=== PATIENT | female | born 1965 | race Caucasian/White ===

== ENCOUNTER → 2017-08-10 | Outpatient (CLI) | payer OTHER | END | disposition home or self-care (01) | LOC: C.PATHSPEC 10:33 | PROVIDERS: ATTEND Dentist Oral and Maxillofacial Pathology | DX: M27.8 Other specified diseases of jaws (principal) ==

== ENCOUNTER 2023-10-19 07:22 | Inpatient (IN) ==
--- NOTE | 2023-09-28 15:14 | PAT Medication Instructions ---
Medication Instructions Date of Service September 28, 2023 Home Medications fluoxetine 20 mg tablet 20 mg PO QAM fremanezumab-vfrm 225 mg/1.5 mL subcutaneous auto-injector (Ajovy) 225 mg subcut Q30D magnesium 500 mg tablet 500 mg PO QAM twwwjjky-nvg-fdkbk ac 400 mcg-calcium carb 500 mg-vit K1 20 mcg tablet (Women's 50 Plus Daily Formula) 1 tab PO QAM riboflavin (vitamin B2) 100 mg tablet (Vitamin B-2) 400 mg PO QAM rizatriptan 10 mg tablet (Maxalt) 10 mg PO UD PRN migraines sumatriptan succinate 6 mg/0.5 mL subcutaneous pen injector 6 mg subcut UD PRN migraines topiramate 100 mg tablet 200 mg PO BID MEDICATION INSTRUCTIONS: DO NOT take the morning of surgery magnesium 500 mg tablet 500 mg PO QAM hbptbxdn-dab-wfbhb ac 400 mcg-calcium carb 500 mg-vit K1 20 mcg tablet (Women's 50 Plus Daily Formula) 1 tab PO QAM riboflavin (vitamin B2) 100 mg tablet (Vitamin B-2) 400 mg PO QAM Take morning of surgery With a small sip of water, OTHERWISE NOTHING TO EAT OR DRINK AFTER MIDNIGHT: fluoxetine 20 mg tablet 20 mg PO QAM rizatriptan 10 mg tablet (Maxalt) 10 mg PO UD PRN migraines sumatriptan succinate 6 mg/0.5 mL subcutaneous pen injector 6 mg subcut UD PRN migraines topiramate 100 mg tablet 200 mg PO BID Take evening before surgery rizatriptan 10 mg tablet (Maxalt) 10 mg PO UD PRN migraines sumatriptan succinate 6 mg/0.5 mL subcutaneous pen injector 6 mg subcut UD PRN migraines topiramate 100 mg tablet 200 mg PO BID Other Notes CHECK WITH PRESCRIBER FOR INSTRUCTIONS: fremanezumab-vfrm 225 mg/1.5 mL subcutaneous auto-injector (Ajovy) 225 mg subcut Q30D If you have any questions please call us at [phone] or [phone] or [phone] or [phone]
--- NOTE | 2023-10-10 10:42 | Anesthesiology Consultation ---
Date of Service October 10, 2023 Assessment & Plan (1) Encounter for pre-operative examination: Chart Review Chart Review: Acceptable Risk for Surgery (pending PCP clearance 10/12/23) and Patient seen in Pre Admission Testing - Awaiting PCP clearance 10/12/23 (S- Dr. Martínez)(please fax preop testing to PCP for review) Per PAT appt on 10/10/23, no recent illness/disease exposures, illness related symptoms, or recent illness/disease positive tests. Will leave to surgeon's discretion if preop Covid testing needed Teaching & Discussion Pre-Anesthesia Teaching/Discussion Notes: Instructed NPO after midnight before surgery,except medications with 15 cc of water. Medication instructions provided according to the PAT guidelines. History Surgery Operation Date: 10/19/23 07:45 Proposed Procedures p L4-L5 Decompression and Fusion with Spinal Cord Monitoring - Yovany Varela, Height/Weight Height: 5 ft 3 in Weight: 52.7 kg Allergies Allergy/AdvReac Type Severity Reaction Status Date / Time meloxicam Allergy Rash Verified 09/28/23 12:47 Medications Home Medications Medication Instructions Recorded Confirmed Last Taken fluoxetine 20 mg tablet 20 mg PO QAM 09/28/23 09/28/23 Unknown fremanezumab-vfrm 225 mg/1.5 mL 225 mg subcut Q30D 09/28/23 09/28/23 Unknown subcutaneous auto-injector (Ajovy) magnesium 500 mg tablet 500 mg PO QAM 09/28/23 09/28/23 Unknown dgxgaban-pai-jhnpj ac 400 1 tab PO QAM 09/28/23 09/28/23 Unknown mcg-calcium carb 500 mg-vit K1 20 mcg tablet (Women's 50 Plus Daily Formula) riboflavin (vitamin B2) 100 mg 400 mg PO QAM 09/28/23 09/28/23 Unknown tablet (Vitamin B-2) rizatriptan 10 mg tablet (Maxalt) 10 mg PO UD PRN migraines 09/28/23 09/28/23 Unknown sumatriptan succinate 6 mg/0.5 mL 6 mg subcut UD PRN migraines 09/28/23 09/28/23 Unknown subcutaneous pen injector topiramate 100 mg tablet 200 mg PO BID 09/28/23 09/28/23 Unknown Past Medical History Medical History Anxiety and depression History of COVID-19 03/2023, not hosp; severe flu symptoms>resolved Hx-TIA (transient ischemic attack) 2003 or 2005, double vision, N/V, vertigo>hospitalized for 2 weeks>no residual effects Migraines F/u Dr. Landa, [facility] Neuro Stable with Ajovy Exercise / Class Metabolic Activity II 4-5 Yardwork/Stairs/Walk up hill (one flight of stairs - no chest pain or SOB ) Past Surgical History Surgical History History of total left knee replacement 2022 Hx of colonoscopy Hx of total hysterectomy ovaries remain Hx of tubal ligation Past Anesthesia History No Hx of Anesthesia Complications and No Family Hx of Anesthesia Complications History of PONV No Hx of PONV and No Hx of Motion Sickness Social History Smoking Status: Never smoker Do You Dip or Chew Tobacco: No Hx Alcohol Use: Yes (many years ago) Hx Substance Use: No substance use type: does not use Review of Systems - Hx of snoriing - no hx of sleep study Patient denies chest pain, shortness of breath, dyspnea on exertion, reflux, cough, wheezing, palpitations. No hx of seizures, NC. No hx of blood clots or blood transfusions Physical Exam Vital Signs VITALS BP 135/80 P 84 TEMP 97.8 SP02 99% RESP 16 Constitutional no acute distress ENMT Mouth: no TMJ clicking Thyromental Distance: < 3.5 Finger Breadths (3.0) Mallampati Class: III Neck neck extension not limited Respiratory normal respiratory effort; no respiratory distress Auscultation: lungs clear to auscultation bilaterally; no wheezes Cardiovascular Rate/Rhythm: regular rate and regular rhythm Heart Sounds: no murmur Vessels: no carotid bruit Musculoskeletal Spine: no pain with cervical ROM Extremities: extremities normal to inspection Psychiatric Orientation: alert Lab Results Anesthesia Preop Results Results Anesthesia Widget: WBC 4.76 K/ul (4.8-10.8) L 10/10/23 Hgb 11.9 g/dl (12.0-16.0) L 10/10/23 Hct 35.8 % (37.0-47.0) L 10/10/23 Plt 302 K/uL (130-400) 10/10/23 Na 139 mmol/L (136-145) 10/10/23 K 3.8 mmol/L (3.5-5.1) 10/10/23 Cl 107 mmol/L (98-107) 10/10/23 CO2 27 mmol/L (21-32) 10/10/23 BUN 16 mg/dl (6-23) 10/10/23 Creat 1.04 mg/dl (0.6-1.2) 10/10/23 Glucose Level 94 mg/dl (70-99(Fasting)) 10/10/23 Urine Color Dark Yellow 10/10/23 Urine Appearance Turbid (Clear) A 10/10/23 Urine pH 7.5 (4.5-7.5) 10/10/23 Urine Specific [place] 1.013 (1.000-1.030) 10/10/23 Urine Protein Negative (Negative) 10/10/23 Urine Glucose (UA) Negative (Negative) 10/10/23 Urine Ketones Negative (Negative) 10/10/23 Urine Blood Negative (Negative) 10/10/23 Urine Nitrite Negative (Negative) 10/10/23 Urine Bilirubin Negative (Negative) 10/10/23 Urine Urobilinogen Negative (Negative) 10/10/23 Urine Leukocyte Esterase Negative (Negative) 10/10/23 Urine WBC (Auto) 0-5 /hpf (0-5) 10/10/23 Urine RBC (Auto) 0-2 /hpf (0-2) 10/10/23 Urine Hyaline Casts (Auto) 0-2 /lpf (0-2) 10/10/23 Urine Epithelial Cells (Auto) 0-2 /hpf (0-2) 10/10/23 Urine Bacteria (Auto) None Seen (None Seen) 10/10/23 Blood Type A Positive 10/10/23 Antibody Screen NEGATIVE 10/10/23 Testing Laboratory Results * Minimal anemia- surgeon's office informed- Dr. Nichole malhotra with proceeding as long as PCP approves patient for surgery; will send preop testing to PCP for review at preop appt 10/12/23 Electrocardiogram Date: 10/10/23 Findings: + NSR @ (76bpm) Incomplete RBBB Chest X-Ray Date: 04/12/23 Findings: + NAD
[2023-10-19] MEDS ORDERED: HYDROmorphone INJ 1 MG/ML SYRINGE IV PRN ×2 (08:11→12:55)
[2023-10-19] MEDS ORDERED: ATROPINE SULFATE 0.1 MG/ML 10ML SYR IV PRN (08:11)
[2023-10-19] MEDS ORDERED: PROMETHAZINE HCL 6.25 MG in SODIUM CHLORIDE 0.9% 50 ML IV PRN (08:11)
[2023-10-19] MEDS ORDERED: ONDANSETRON INJ 2 MG/ML 2 ML VIAL IV PRN ×2 (08:11→12:55)
[2023-10-19] MEDS: LR 60ML/HR IV SCH (08:15)
[2023-10-19] MEDS: ACETAMINOPHEN 500 MG TAB PO SCH (08:15)
[2023-10-19] MEDS: LR 15ML/HR IV SCH (08:15)
[2023-10-19] MEDS: GABAPENTIN 600 MG DOSE PO SCH (08:16)
[2023-10-19] MEDS: CeleBREX 200 MG CAP PO SCH (08:16)
--- NOTE | 2023-10-19 08:46 | History & Physical Bridge Note ---
Date of Service October 19, 2023 History & Physical Bridge Note I have examined the patient, reviewed the History & Physical and in the interval since the performance of the History & Physical I have noted the following changes of clinical significance: no changes noted
--- NOTE | 2023-10-19 08:47 | History & Physical Report ---
Date of Service October 19, 2023 Assessment & Plan (1) Neurogenic claudication due to lumbar spinal stenosis: Plan: L4-L5 decompression and fusion History of Present Illness Chief Complaint: Back and leg pain Primary Care Provider: NO PCP This is a 58-year-old female who presents with chronic persistent back and leg pain after the stents were open after Allergies Allergy/AdvReac Type Severity Reaction Status Date / Time meloxicam Allergy Rash Verified 10/19/23 07:52 Home Medications Medication Instructions Recorded Confirmed Type fluoxetine 20 mg tablet 20 mg PO QAM 09/28/23 10/19/23 History fremanezumab-vfrm 225 mg/1.5 mL 225 mg subcut Q30D 09/28/23 10/19/23 History subcutaneous auto-injector (Ajovy) magnesium 500 mg tablet 500 mg PO QAM 09/28/23 10/19/23 History rhodquxp-skn-rosfn ac 400 1 tab PO QAM 09/28/23 10/19/23 History mcg-calcium carb 500 mg-vit K1 20 mcg tablet (Women's 50 Plus Daily Formula) riboflavin (vitamin B2) 100 mg 400 mg PO QAM 09/28/23 10/19/23 History tablet (Vitamin B-2) rizatriptan 10 mg tablet (Maxalt) 10 mg PO UD PRN migraines 09/28/23 10/19/23 History sumatriptan succinate 6 mg/0.5 mL 6 mg subcut UD PRN migraines 09/28/23 10/19/23 History subcutaneous pen injector topiramate 100 mg tablet 200 mg PO BID 09/28/23 10/19/23 History Past Med/Surg History Problem List (Updated 10/19/23 @ 08:47 by Yovany Varela DO) Neurogenic claudication due to lumbar spinal stenosis Encounter for pre-operative examination Medical History Anxiety and depression History of COVID-19 03/2023, not hosp; severe flu symptoms>resolved Hx-TIA (transient ischemic attack) 2003 or 2005, double vision, N/V, vertigo>hospitalized for 2 weeks>no residual effects Migraines F/u Dr. Landa, [facility] Stable with Ajovy Surgical History History of total left knee replacement 2022 Hx of colonoscopy Hx of total hysterectomy ovaries remain Hx of tubal ligation Social History Smoking Status: Never smoker Second Hand Exposure: Yes (hx as child); Do You Dip or Chew Tobacco: No; Tobacco Cessation Education Requested by Patient: No Hx Alcohol Use: Yes (many years ago) Hx Substance Use: No Preferred Language: Azeri Communication Ability: Effective Pc Installation Engineer Required: No Beliefs That Will Affect Care: None Current Living Situation: Spouse Other Information That Helps Us Care for You: No Feels Safe at Home: Yes Safety Concerns: Feels Safe At This Time Assistive Devices: None Physical Exam Physical Exam: Patient is alert and oriented heart regular rhythm lungs clear Results & Data Results & Data Vital Signs (Past 12 Hours) Vital Signs Temp Pulse Resp BP Pulse Ox O2 Del Method 10/19/23 07:54 36.6 C 64 20 129/77 100 Room Air
[2023-10-19] MEDS ORDERED: PROPOFOL IV EMULSION 10 MG/ML 20 ML VIAL IV ONE ×2 (09:07→09:42)
[2023-10-19] MEDS ORDERED: fentaNYL citrate PF 100 MCG/2 ML VIAL ONE (09:07)
[2023-10-19] MEDS ORDERED: LIDOCAINE 2% 2 ML VIAL/AMP(20MG/ML) INFIL ONE (09:07)
[2023-10-19] MEDS ORDERED: MIDAZOLAM HCL 1 MG/ML 2ML VIAL ONE (09:07)
[2023-10-19] MEDS ORDERED: DEXAMETHASONE SOD INJ 4 MG/ML VIAL ONE (09:07)
[2023-10-19] MEDS ORDERED: ONDANSETRON INJ 2 MG/ML 2 ML VIAL ONE (09:07)
[2023-10-19] MEDS ORDERED: ROCURONIUM BROMIDE 10 MG/ML 5 ML VIAL IV ONE ×2 (09:07→09:42)
[2023-10-19] MEDS: ceFAZolin 2000MG 2,000 MG/15 ML SYR IV SCH (09:14)
[2023-10-19] MEDS: BUPIVACAINE/EPINEPHRINE 0.25% 1:200,000 30 ML VIAL ONE (09:36)
[2023-10-19] MEDS: ceFAZolin 330 MG/ML 1 GM VIAL ONE (09:36)
[2023-10-19] MEDS ORDERED: diphenhydrAMINE 50 MG/ML VIAL ONE (09:39)
[2023-10-19] MEDS: FLOSEAL HEMOSTATIC MATRIX 10ML TOP ONE (10:29)
[2023-10-19] MEDS ORDERED: GLYCOPYRROLATE 0.2 MG/ML VIAL ONE (10:33)
[2023-10-19] MEDS ORDERED: NEOSTIGMINE METHYLSULFATE 1 MG/ML 10ML VIAL ONE (10:33)
--- NOTE | 2023-10-19 10:38 | Operative Report ---
Post Operative Report Pre & Post Diagnosis Operation Date: 10/19/23 09:05 Pre-Op Diagnosis: 1. Neurogenic claudication due to lumbar spinal stenosis Spondylolisthesis L4-L5 Post-Op Diagnosis: Same I identified the patient and participated in the time-out.: Yes Procedure Operation Date: 10/19/23 09:05 Actual Procedures #1 lumbar decompression bilateral medial facetectomies and foraminotomies L3-L4 L4-5 per #2 posterior spinal fusion L4-5 per #3 placed posterior instrumentation L4-5 per #4 interbody fusion L4-L5 #5 placement spiral 12 x 26 mm x 2 at L4-5. #6 placement locally harvested morselized autograft in the posterior gutters. #7 placement infuse collagen sponge, with Koros in the posterior gutters and Morpheus bone graft interbody space. Surgeon Yovany Varela, Aircraft Engine Mechanic Over[employer] Solitario Martinez Estimated Blood Loss 100 Findings Consistent with Post-Op Diagnosis Specimens None Indications This is a 58-year-old female who presents above-mentioned diagnosis with a failed course of nonoperative care is here for surgical invention. Description of Procedure Patient was met with identified informed consent obtained. Patient was then taken to the operative suite underwent patient placed in a prone position on the Harjit table on top the Corbin frame. All bony prominences well-padded eyes inspected to ensure no external precipice spinal. This point lumbar spine was prepped and draped in normal sterile fashion. Sharp dissection with the assistance of Bovie cautery from down to exposing the lamina transverse processes of L4-L5. From caudal assessment fashion complete laminectomy of L4 was performed including bilateral medial facetectomies and foraminotomies addressing severe spinal stenosis. Then performed a partial laminectomy of L3 including bilateral medial facetectomies addressing all lateral recess disease. Pedicle screws were then placed in L4-L5 bilaterally with assistance of fluoroscopy and appropriate size heriberto placed. By way of transforaminal approach on the right and discectomy of L4-5 was performed endplates guided to subcortical bleeding bone and a 12 x 26 mm Spira cage filled with Morpheus bone graft tapped in position. Then proceeded to the left transforaminal region at L4-5. Discectomy for performed endplates guided to subcortical bleeding bone and a second 12 x 26 mm spira cage filled with Morpheus bone graft tapped into position. The rods were then compressed locked into final position bilaterally. The transverse processes of L4-5 burred to subcortical bleeding bone. Infuse collagen sponge but with Koros and local autograft placed in the posterior gutters. 15 round SATHISH drain inserted. The incision was then closed with 1 Vicryl in the fascia 2-0 Vicryl subcutaneously and 4 Monocryl for final skin closure. Steri-Strips sterile dressing placed. Patient waken taken PACU stable condition. Please note spinal cord monitoring was utilized at the procedure no changes noted. Lastly Solitario Martinez was present at the entire surgeon while the patient positioning complex portion of the surgery and final skin closure. I attest to the content of the Intraoperative Record and any orders documented therein. Any exceptions are noted below.
[2023-10-19] MEDS ORDERED: SUGAMMADEX SODIUM 200 MG/2 ML VIAL IV ONE (10:56)
--- NOTE | 2023-10-19 11:00 | Fluoroscopy Report ---
INTRAOPERATIVE RADIOGRAPHS CLINICAL HISTORY: L4-L5 spinal fusion. Fluoro time: 13 seconds. Ka,r: 6.20 mGy FINDINGS: 2 spot fluoroscopic views of the lumbar spine are presented. There has been discectomy at L 4-L5 with laminectomy and posterior fusion at this level. Interpedicular screws are in place. The ort hopedic hardware appears intact. IMPRESSION: Intraoperative images from lumbar spinal fusion surgery as above. Electronically signed by: Gaston Drummond M.D. 10/19/2023 10:59 AM
--- OUTSIDE RECORDS SUMMARY | 2023-10-19 11:40 | External Medical Summary | Summary of Care ---
Author Name Unknown Organization [facility] Address [address] [facility] [place] [address] Phone [phone] Care Team Providers Care Supervisor Fur Floor Worker Name Role Phone Mauricio Hernandez DO, David Vincent Primary Care Provid er Reason for Visit * Reason Comments pre-op exam Encounter Details Date Type Department Care Team (Late st Contact Info) Description 10/12/2023 4:40 PM EDT Office Visit [facility] [address] [place] [phone] Abdi Arnett CRNP [address] [place] [address] Preop examination* Allergies Active Allergy Reactions Criticality Noted Date Comments Meloxicam Rash Low 04/16/2018 documented as of this encounter (statuses as of 10/12/2023) Medications Medication Sig Dispensed Refills Start Date End Date Status MULTIVITAMINS PO CAPS one cap daily 0 0 08/20/2009 Active CLARITIN-D 12 HOUR 5-120 MG PO TB12 as needed Active Magnesium 500 MG Capsule Take 1 Tablet by mouth in the morning. Active Osteo Bi-Flex Adv Joint Shield Oral Tablet Take 1 Tab by mouth daily. Active Vitamin B-2 100 MG Oral Tablet (vitamin B-2) TAKE 4 TABLETS IN THE MORNING WITH FOOD 12/13/2020 Active Ondansetron 8 MG Oral Tablet Disintegrating (Zofran)Indications:I ntractable migraine with aura without status migrainosus Place on tongue 1 Tablet every 8 hours as needed for Nausea. dissolve on tongue. 30 Tablet 5 11/21/2021 Active SUMAtriptan Succinate 6 MG/0.5ML Subcutaneous Solution Auto-injector (Imitrex) Inject 6 mg under the skin as needed for Migraine. Do not use within 24 hours of Rizatriptan. 0.5 mL 5 08/24/2022 Active valACYclovir HCl 1 GM Oral Tablet (Valtrex) 2 tablets by mouth every 12 hours for 1 day at onset of cold sores. 20 Tablet 11 01/24/2023 Active Topiramate 100 MG Oral Tablet (topAMAX) TAKE 2 TABLETS BY MOUTH EVERY MORNING AND TAKE 2 TABLETS BY MOUTH AT BEDTIME 360 Tablet 3 02/21/2023 Active Ajovy 225 MG/1.5ML Subcutaneous Solution Auto-injector (Fremanezumab-vfrm) INJECT 1.5 ML (1 PEN) UNDER THE SKIN EVERY MONTH. 1.5 mL 3 06/21/2023 Active FLUoxetine HCl 20 MG Oral Capsule (PROzac) TAKE ONE CAPSULE BY MOUTH EVERY DAY 90 Capsule 3 08/27/2023 08/26/2024 Active Rizatriptan Benzoate 10 MG Oral Tablet (Maxalt) Take 1 tablet as needed for migraine. May repeat after 2 hours. Do not exceed 2 tablets in 24 Hours. 10 Tablet 1 09/20/2023 Active Vitamin D-3 5000 UNIT/ML Sublingual Liquid Place under the tongue. Active documented as of this encounter (statuses as of 10/12/2023) Active Problems Problem Noted Date Diagnosed Date S/P total knee arthroplasty, left 10/26/2022 Stage 3a chronic kidney disease 10/06/2022 Anxiety and depression 05/19/2022 Disc disorder of lumbar region 08/17/2020 Lumbar radicular pain 08/17/2020 Degeneration of thoracic intervertebral disc Acute midline thoracic back pain 07/05/2020 Vulvar lesion 10/24/2013 History of vulvar dysplasia 10/22/2013 History of cervical cancer 10/22/2013 Migraine 05/26/2011 INFORMATION 02/03/2003 Dysplasia of cervix (uteri) 11/25/2002 Overview: ICD-10 update of inactive term Postcoital bleeding 11/25/2002 Excessive menstruation 11/25/2002 Ulceration of vulva 11/25/2002 documented as of this encounter (statuses as of 10/12/2023) Resolved Problems Problem Noted Date Diagnosed Date Resolved Date TIA (transient ischemic attack) 11/25/2002 04/16/2018 documented as of this encounter (statuses as of 10/12/2023) Immunizations Name Administration Dates Next Due COVID-19 mRNA, LNP-s, No Pre serve, 2-Dose Series (Lockr) 02/23/2021,05/06/2020,04/17/2020 COVID-19, LNP-s, No Preserve , Kamran-sucrose, Ages 12+ (Pfizer) 09/22/2021 Covid-19, Mrna, Lnp-s, Pf, B ivalent, 30 Mcg, IM, 12 yrs and above (Pfizer) 01/25/2022 Seasonal Influenza Virus Vac cine, Unspecified Formulation 01/21/2020,03/07/2019,02/05/2018 Seasonal Influenza, PF, 6 M & above, IM , (FluLaval or Fluzone) 02/23/2023,02/13/2022 Seasonal Influenza, Quadriva lent, No Preserve, IM 01/27/2021,03/05/2019 Seasonal Influenza, Split, I IV3, With Preserve, Inj 05/13/2012,05/26/2011,03/14/2010 TDAP (age 10 and older)(Boostrix) 01/21/2022, Zoster Vaccine Recombinant (Shingrix) 07/20/2021 ,05/04/2021 documented as of this encounter Social History Tobacco Use Types Packs/Day Years Used Date Smoking Tobacco: Never Smokeless Tobacco: Never Tobacco Cessation:Counseling Given: Not Answered Alcohol Use Standard Drinks/Week Comments Not Currently 0 (1 standard drink = 0.6 oz pur e alcohol) occasional PHQ-2 Answer Date Recorded PHQ Adult Total Score 0 10/06/2022 Hunger Vital Sign Answer Date Recorded Within the past 12 months, y ou worried that your food would run out before you got the money to buy more. Never true 10/07/19 23 Within the past 12 months, t he food you bought just didn't last and you didn't have money to get more. Never true 10/06/2022 Sex and Gender Information Value Date Recorded Sex Assigned at Female 04/18/2019 8:03 AM EST Gender Identity Female 04/18/2019 8:03 AM EST Sexual Orientation Straight 04/18/2019 8: 03 AM EST Job Start Date Occupation Industry Not on file Not on file Not on file documented as of this encounter Last Filed Vital Signs Vital Sign Reading Time Taken Comments Blood Pressure 130/80 10/12/2023 4:42 PM EDT Pulse 76 10/12/2023 4:42 PM EDT Temperature 36.6 C (97.9 F) 10/12/2023 4:42 PM ED T Respiratory Rate 16 10/12/2023 4:42 PM EDT Oxygen Saturation 98% 10/12/2023 4:42 PM EDT Inhaled Oxygen Concentration - - Weight 52.3 kg (115 lb 4.8 oz) 10/12/2023 4:42 P M EDT Height 160 cm (5' 2.99") 10/12/2023 4:42 PM EDT Body Mass Index 20.43 10/12/2023 4:42 PM EDT documented in this encounter Functional Status Functional Status Response Date of Assess ment Are you deaf or do you have serious difficulty h earing? No 10/26/2022 Are you blind or do you have serious difficulty seeing, even when wearing glasses? No 10/26/2022 Do you have serious difficul ty walking or climbing stairs? (5 years old or older) No 10/26/2022 Do you have difficulty dress ing or bathing? (5 years old or older) No 10/26/2022 Because of a physical, menta l, or emotional condition, do you have difficulty doing errands alone such as visiting a doctor s office or shopping? (15 years old or older) No 10/27/19 Cognitive Status Response Date of Assessm ent Because of a physical, menta l, or emotional condition, do you have serious difficulty concentrating, remembering, or making decisions? (5 years old or older) No 10/26/2022 documented as of this encounter Progress Notes * Abdi Arnett CRNP - 10/12/2023 4:44 PM EDT Images from the original note were not included. Pre-Operative Medical Evaluation Patient is a 58-year-old female with a history of migraines, degenerative disc disease, anxiety anddepression, and status post total knee arthroplasty who presents today for a preoperative exam. Patient has no specific medical complaints. Taking all medications as prescribed. Procedure Information Type of Surgery: L4-L5 decompression and fusion Referring Physician / Surgeon: Dr. Varela Date of procedure: 10/19/2023 Brief History of Present Illness: Worsening of DDD of lumbar region. Review of Systems: Constitutional ROS: No change in weight, No weakness, No fatigue, and No fevers, sweats, or chills Eye ROS: No recent significant change in vision, No eye pain, redness, discharge, and No diplopia Ear ROS: No ear pain, No drainage, No tinnitus or vertigo, and No recent change in hearing Mouth/Throat ROS: No bleeding gums, No thrush, or No sore throat Neck ROS: No lumps or masses, No swollen glands, and No recent swelling in thyroid area Pulmonary ROS: No cough, sputum, or hemoptysis, No wheezing, No rales, No shortness of breath, and No recent change in breathing Cardiovascular ROS: No chest pain, No shortness of breath, No dyspnea on exertion, No orthopnea, Noparoxysmal nocturnal dyspnea, No edema, No palpitations, and No syncope Gastrointestinal ROS: No abdominal pain, No change in bowel habits, No significant heartburn, No significant change in appetite, No nausea, vomiting, diarrhea, or constipation, No hematemesis, No blood in stools or black tarry stools, No abdominal bloating or early satiety, and No dysphagia Genito-Urinary Female ROS: No dysuria, No frequency, No incontinence, and No urgency Musculoskeletal/Extremities ROS: No pain, redness or swelling on the joints Hematologic/Lymphatic ROS: No anemia, No abnormal bleeding, No chills, No bruising, No night sweats, No swollen nodes, and No weight loss Skin/Integumentary ROS: No edema, No rash, and No itching Neurologic ROS: Normal balance, No headaches, No seizures, and No weakness Medical History Problem List: S/P total knee arthroplasty, left (10/26/2022) Stage 3a chronic kidney disease (HCC) (10/06/2022) Anxiety and depression (05/19/2022) Disc disorder of lumbar region (08/17/2020) Lumbar radicular pain (08/17/2020) Degeneration of thoracic intervertebral disc (07/28/2020) Acute midline thoracic back pain (07/05/2020) Vulvar lesion (10/24/2013) History of vulvar dysplasia (10/22/2013) History of cervical cancer (10/22/2013) Migraine (05/26/2011) INFORMATION (02/03/2003) Dysplasia of cervix (uteri) (11/25/2002) TIA (transient ischemic attack) (11/25/2002) Postcoital bleeding (11/25/2002) Excessive menstruation (11/25/2002) Ulceration of vulva (11/25/2002) Current Medications Vitamin D-3 5000 UNIT/ML Sublingual Liquid, Place under the tongue. Rizatriptan Benzoate 10 MG Oral Tablet (Maxalt), Take 1 tablet as needed for migraine. May repeat after 2 hours. Do not exceed 2 tablets in 24 Hours. FLUoxetine HCl 20 MG Oral Capsule (PROzac), TAKE ONE CAPSULE BY MOUTH EVERY DAY Ajovy 225 MG/1.5ML Subcutaneous Solution Auto-injector (Fremanezumab-vfrm), 225 mg, Subcutaneous, QMonth Topiramate 100 MG Oral Tablet (topAMAX), TAKE 2 TABLETS BY MOUTH EVERY MORNING AND TAKE 2 TABLETS BY MOUTH AT BEDTIME valACYclovir HCl 1 GM Oral Tablet (Valtrex), 2 tablets by mouth every 12 hours for 1 day at onset of cold sores. SUMAtriptan Succinate 6 MG/0.5ML Subcutaneous Solution Auto-injector (Imitrex), 6 mg, Subcutaneous,PRN Ondansetron 8 MG Oral Tablet Disintegrating (Zofran), 8 mg, On Tongue, Q8H PRN Vitamin B-2 100 MG Oral Tablet (vitamin B-2), TAKE 4 TABLETS IN THE MORNING WITH FOOD Osteo Bi-Flex Adv Joint Shield Oral Tablet, 1 Tablet, Oral, Daily(AM) Magnesium 500 MG Capsule, 500 mg, Oral, Daily(AM) CLARITIN-D 12 HOUR 5-120 MG PO TB12, as needed MULTIVITAMINS PO CAPS, one cap daily Allergies: Meloxicam Past Medical History: has a past medical history of Anxiety and depression, DDD (degenerative disc disease), lumbar, Dysplasia of cervix (uteri) (2000), INFORMATION (2002), Migraines, OA (osteoarthritis), Postcoital bleeding, TIA (transient ischemic attack) (1992), and TIA (transient ischemic attack) (11/25/2002). Past Surgical History: has a past surgical history that includes Conization of cervix (2000); ligate/cut oviduct(s) (1989); genital surgery procedure nec (2002); vaginal hysterectomy (2002); genital surgery procedure nec (2003); Colonoscopy, Diagnostic (Rectum) (03/15/2015); Colonoscopy, Diagnostic (Rectum) (N/A, 05/23/2018); Lumbar / Sacral Epidural, single level (09/02/2020); EGD, Flexible, Diagnostic (01/17/2021); EGD, Flexible, Diagnostic (N/A, 03/14/2021); Inject Dx/Ther Substance Interlaminar Lumbar/Sacral W Image Guide (N/A, 08/19/2021); puncture drainage breast cyst (Right); Arthroplasty Knee Condyle/Plateau, Medial or Lateral (Left, 10/26/2022); Arthroplasty Knee Total (Left, 10/26/2022); and Inject Dx/TherSubstance Interlaminar Lumbar/Sacral W Image Guide (08/13/2023). Social History: reports that she has never smoked. She has never used smokeless tobacco. She reports that she does not currently use alcohol. She reports that she does not use drugs. Family History: family history includes Cancer in her father; Glaucoma in her mother; Hypertension in her mother; Lung Disorder in her father. Anesthesia History Type of Anesthesia: General Endotracheal and Caudal block Anesthesia reaction: No History of surgical complications: none Personal history of venous thromboembolic disease: none Physical Exam Vitals: 10/12/23 1642 Temp: 36.6 C (97.9 F) Pulse: 76 Resp: 16 SpO2: 98% BP: 130/80 BMI: 20.43 General: alert, healthy, and no distress Head: Normocephalic, No masses, lesions, tenderness or abnormalities Eye Exam: PERRLA, extraocular movements intact, conjunctiva are pink and non- injected, sclera clear Ears: External ears normal, Canals clear, TM's Normal Nose: no mucosal erythema, no mucosal edema, no purulent discharge Oropharynx: no exudate, no erythema, lips, buccal mucosa, and tongue normal, and mucous membranes are moist Lymph: no palpable lymphadenopathy Heart: regular rate & rhythm, no murmur, and no gallops Lungs: chest symmetric with normal AP diameter, no chest deformities noted, no chest wall tenderness, lungs clear to auscultation Pulses: radial=2/4 Abdomen: abdomen soft, non-tender, normal bowel sounds, Extremities: less than 2 second capillary refill, no joint deformities, effusion, or inflammation Neuro Exam: alert & oriented x 3 with fluent speech, no focal motor/sensory deficits, gait normal, reflexes normal and symmetric Skin: skin color, texture, turgor are normal, no rashes or significant lesions Labs reviewed and are significant for: Latest Reference Range & Units 08/15/23 08:36 08/15/23 08:39 Sodium 135 - 146 mmol/L 140 Potassium 3.5 - 5.1 mmol/L 4.4 Chloride 98 - 107 mmol/L 105 CO2 22 - 32 mmol/L 22 BUN 6 - 20 mg/dL 19 Creatinine 0.5 - 1.0 mg/dL 1.0 Estimated Glomerular Filtration Rate >=60 mL/min 64 Anion Gap 7 - 15 mmol/L 13 Glucose 70 - 120 mg/dL 94 Calcium 8.4 - 10.2 mg/dL 9.8 Magnesium 1.5 - 2.6 mg/dL 2.3 Phosphorus 2.5 - 4.8 mg/dL 4.2 TSH 0.27 - 4.20 uIU/mL 1.78 TSH WITH FREE T4 IF INDICATED Rpt Thyroglobulin Antibody <115.0 IU/mL 13.8 Thyroid Peroxidase Antibody <34.0 IU/mL 8.0 CBC Rpt WBC 4.00 - 10.80 K/uL 6.07 RBC 3.85 - 5.15 M/uL 4.14 HGB 12.0 - 15.3 g/dL 12.9 HCT 36.0 - 45.2 % 40.2 MCV 81.5 - 97.5 fL 97.1 MCH 27.0 - 34.0 pg 31.2 MCHC 32.0 - 36.0 g/dL 32.1 RDW 11.5 - 15.5 % 13.5 PLT 140 - 400 K/uL 324 MPV 6.6 - 11.1 fL 9.2 IRON SCREEN, INCLUDING TIBC Rpt Iron 33 - 151 ug/dL 143 Iron Binding Capacity 250 - 425 ug/dL 346 Transferrin Saturation Percent 15 - 55 % 41 Vitamin B12 232 - 1,245 pg/mL 885 Albumin / Creatinine Ratio, Urine <30 mg/g Creat 6 Albumin, Random Urine mg/dL 1.23 Creatinine, Random Urine mg/dL 194 Rpt: View report in Results Review for more information EKG by my review is significant for: 10/02/2022 3:33 PM - Interface, Emergency Medical Service Manager Narrative & Impression REASON FOR STUDY: PRE-OP CONCLUSIONS: Normal sinus rhythm Incomplete right bundle branch block Borderline ECG When compared with ECG of 09-MAR-2021 16:41, T wave inversion less evident in Anterior leads Ventricular Rate: 92 Atrial Rate: 92 AR Interval: 120 QRS Duration: 92 QT/QTc: 388/479 ms P-R-T Guthrie: 68 : -28 : 61 degrees Emergency Medical Service Manager Type ID Date and Time Dictating Provider EKG Report [id number] 10/02/2022 7:53 AM Sarina Foster MD Signed by Sarina Foster MD on 10/02/22 at 1533 REASON FOR STUDY: PRE-OP CONCLUSIONS: Normal sinus rhythm Incomplete right bundle branch block Borderline ECG When compared with ECG of 09-MAR-2021 16:41, T wave inversion less evident in Anterior leads Ventricular Rate: 92 Atrial Rate: 92 AR Interval: 120 QRS Duration: 92 QT/QTc: 388/479 ms P-R-T Guthrie: 68 : -28 : 61 degrees Display only: Emergency Medical Service Manager ([id number]) on 10/02/2022 7:53 AM by Sarina Foster MD Surgical Risk Scoring Revised Cardiac Risk Index (RCRI) High-risk type of surgery (examples include vascular and any open intraperitoneal or intrathoracic procedures): 0=No History of ischemic heart disease (history of myocardial infarction or positive exercise test, current compliant of chest pain considered to be secondary to myocardia ischemia, use of nitrate therapy, or ECG with pathological Q waves; do not count prior coronary revascularization procedure unless one of the other criteria for ischemic heart disease is present): 0=No History of heart failure: 0=No History of cerebrovascular disease: TIA 25 years ago Diabetes mellitus requiring treatment with insulin: 0=No Preoperative serum creatinine >2.0 mg/dL (177 micromol/L): 0=No Pt has revised cardiac index score of: No Risk Factors- 0.4% (95% CI: 0.1-0.8) Assessment and Plan Preop examination (Primary) - Based on the patient's HPI and physical examination I feel that the patient is clinically optimized for the given surgical procedure. Functional Assessment They are able to walk up a flight of stairs, walk two blocks at a moderate pace, do heavy house work like vacuuming, and grocery shop. The patient's functional status is good (greater than 4 METS). 1 MET: 4 METs: 4-10 METs: Can take care of self, such as eat, dress or use the toilet. Can walk to block or go up a flight of steps. Can do heavy house work. Surgical Risk Assessment Patient is low medical risk for the listed procedure. Medication adjustments: none Additional consults or testing: None I spent a total of 20-29 minutes (exact time 20 mins) on the date of service in preparation, delivery, and documentation of the care provided to Leticia Garcia excluding any time spent in the performance of separately billed services. MATT Mccain [facility] documented in this encounter Nursing Notes * Shirin Baltazar CCMA - 10/12/2023 4:40 PM EDT Chief Complaint Patient presents with pre-op exam Pt is here for a pre op exam. Pt is scheduled for surgery on 10/19/23 for her back. Most recent EKG is 6/5. Pt has no concerns. documented in this encounter Plan of Treatment Upcoming Encounters Date Type Department Care Team (Latest Contact Info) Description 03/17/2024 10:00 AM [facility] Hospital Encounter [facility], Endoscopy [address] [place] [id number] Celsa Santos DO [address] [place] [address] 03/17/2024 10:00 AM EST - 03/17/2024 10:30 AM EST Surgery ENDO [facility], Endoscopy [address] [place] [id number] Celsa Santos, [address] [place] [id number] COLONOSCOPY FLEXIBLE PROXIMAL DIAGNOSTIC 08/25/2024 8:40 AM EDT Office Visit Neurology [facility] [address] [facility] [place] [address] Chelly Hall MD [address] [facility] [place] [address] Scheduled Procedures Name Priority Associated Diagnoses Date/Ti me COLONOSCOPY FLEXIBLE PROXIMAL DIAGNOSTIC Recall History of colonic polyps 03/17/2024 10:00 AM EST Health Maintenance Due Date Last Done Comments HIV Screening 1978 Cologuard 2008 Sigmoidoscopy 2008 Fecal Occult Blood Test 10/22/2014 10/22/2013 COVID-19 Vaccine ( season) 2022 01/25/2022, 09/22/2021, 02/23/2021, Additional history exists Colonoscopy 05/23/2023 05/23/2018, 05/01, 03/15/2015, Additional history exists Colorectal Cancer Screening 05/23/2023 Depression Monitoring 10/07/2023 10/06/2022 GFR 02/14/2024 08/15/2023, 11/28, 10/27/2022, Additional history exists Albumin/Creatinine Ratio 08/14/2024 08/15/2023 CKD HGB USE SMARTSET 37591 08/14/202408/14, 10/27/2022, 10/02/2022, Additional history exists CKD PHOS USE SMARTSET 37145 08/14/2024 08/15/2023 Mammogram 09/04/2024 09/05/2023, 08/0 12/2021, 08/25/2020, Additional history exists Lipid Panel 08/18/2026 08/18/2021, 09/29, 04/18/2018, Additional history exists DTaP,Tdap,and Td Vaccines (3 - Td or Tdap) 01/22/2032 01/21/2022, 08/16/2012 RETIRED - COLONOSCOPY-EVERY 5 YRS AGES 18-100 Discontinued 05/23/2018, 05/23/2018, 03/15/2015, Additional history exists Zoster Vaccines Completed 07/20/2021, 05/04/2021 Influenza Vaccine (FLU shot) Completed 02/23/2023, 02/13/2022, 01/27/2021, Additional history exists GARDASIL-HPV IMMUNIZATION SERIES Aged Out No longer eligible based on patient's age to complete this topic Hepatitis B Aged Out No longer eligi ble based on patient's age to complete this topic MENINGOCOCCAL (MENACTRA/MENVEO) Aged Out No longer eligible based on patient's age to complete this topic Pneumococcal Vaccine: Pediatrics (0 to 5 Years) and At-Risk Patients (6 to 64 Years) Aged Out No longer eligible based on patient's age to complete this topic documented as of this encounter Medical Devices Implanted Type Area Service Order Dispatcher Device Identifier Shelf Expiration Date Model / Serial / Lot Cement Bone Simplex Hv & G - [id number] Implanted:Qty: 2 on 10/26/2022 by Lawson Pedraza MD at OR [facility] Left: Knee DIANA : [employer] 12/29/2023 [id number] / / [id number] Knee Baseplate Tri Tib Sz 2 - [id number] Implanted:Qty: 1 on 10/26/2022 by Lawson Pedraza MD at OR [facility] Left: Knee DIANA : OR[employer] 07/13/2027 [id number] / / [id number] Component Femoral Size 3 - [id number] Implanted:Qty: 1 on 10/26/2022 by Lawson Pedraza MD at OR [facility] Left: Knee DIANA : ORTH[employer] 06/15/2027 [id number] / / [id number] Triathlon X3 Tibial Bearing Insert - [id number] Implanted:Qty: 1 on 10/26/2022 by Lawson Pedraza MD at OR [facility] Left: Knee DIANA : ORTHOP[employer] 06/24/2027 [id number] / / [id number] documented as of this encounter Visit Diagnoses Diagnosis Preop examination- Primary Preoperative examination, unspecified History of colonic polyps Personal history of colonic polyps documented in this encounter Advance Directives * Full Code (Latest Code Status on File) Date Activated Date Inactivated Comments 10/26/2022 2:06 PM 10/27/2022 6:00 PM This order r eflects the patients wishes and were consensually agreed upon. Question Answer Comments Discussion of Advance Direct trinity occurred with: Not Discussed due to patient's condition Care Teams Supervisor Fur Floor Worker Relationship Specialty Start Date End Date Diego Martínez Jr., DO [address] [facility] [place] [address] PCP - General Family Medicine 05/01/17 documented as of this encounter
[2023-10-19] MEDS ORDERED: MAGNESIUM HYDROXIDE SUSP 30 ML UDC PO PRN (12:55)
[2023-10-19] MEDS ORDERED: FAMOTIDINE 20 MG TAB PO PRN (12:55)
[2023-10-19] MEDS ORDERED: LORazepam 0.5 MG in SYRINGE 0.25 ML IV PRN (12:55)
[2023-10-19] MEDS ORDERED: ALUMINUM/MAGNESIUM SUSP 30 ML UDC PO PRN (12:55)
[2023-10-19] MEDS ORDERED: SOD PHOSPHATE/SOD BIPHOSPHATE ENEMA 132 ML BTL PR PRN (12:55)
[2023-10-19] MEDS ORDERED: METOCLOPRAMIDE HCL INJ 5 MG/ML 2 ML VIAL IV PRN (12:55)
[2023-10-19] MEDS ORDERED: SUMATRIPTAN SUCCINATE 6 MG/0.5 ML SQ PRN (12:55)
[2023-10-19] MEDS ORDERED: PROMETHAZINE HCL 12.5 MG in SODIUM CHLORIDE 0.9% 50 ML IV PRN (12:55)
[2023-10-19] MEDS ORDERED: ACETAMINOPHEN 1,000 MG/100 ML VIAL IV PRN (12:55)
[2023-10-19] MEDS ORDERED: diphenhydrAMINE Capsule 25 MG CAP PO PRN (12:55)
[2023-10-19] MEDS ORDERED: ONDANSETRON 4 MG OD TAB PO PRN (12:55)
[2023-10-19] MEDS ORDERED: NALOXONE HCL 0.4 MG/1 ML VIAL/CARP IV PRN (12:55)
[2023-10-19] MEDS ORDERED: DO NOT ADMINISTER PNEUMOCOCCAL VACCINE PRN (12:55)
[2023-10-19] MEDS ORDERED: bisacodyL 10 MG SUPP PR PRN (12:55)
[2023-10-19] MEDS ORDERED: LORazepam 0.5 MG TAB PO PRN (12:55)
[2023-10-19] MEDS ORDERED: DO NOT ADMINISTER FLU VACCINE PRN (12:55)
[2023-10-19] MEDS ORDERED: hydrOXYzine HCl 25 MG TAB PO PRN (12:55)
[2023-10-19] MEDS ORDERED: RIZATRIPTAN BENZOATE 10 MG TAB PO PRN (12:55)
[2023-10-19] MEDS: LACTATED RINGER'S 1,000 ML IV SCH (13:16)
--- NOTE | 2023-10-19 13:16 | Consultation ---
Date of Consultation October 19, 2023 Assessment & Plan (1) S/P spinal surgery: (2) Neurogenic claudication due to lumbar spinal stenosis: This is a 58yo F with a PMH of dyslipidemia, PAXTON, GERD, history of gastric bypass, depression and other medical problems listed below who is POD #0 s/p lumbar decompression bilateral medial facetectomies and foraminotomies L3-L4 L4- 5 and posterior spinal fusion L4-[address] Varela. POD #0 s/p lumbar decompression bilateral medial facetectomies and foraminotomies L3-L4 L4-5 and posterior spinal fusion L4-[address] Varela Per ortho for pain control, wound care, anticoagulation and activities Monitor H&H (EBL 100ml, pre-op hgb 12.9), continue incentive spirometry, PT/OT when appropriate (3) Anxiety and depression: Stable. Continue fluoxetine (4) Migraines: Follows with Dr. Hall. Continue Topamax BID, monthly Ajovy injections,Maxalt and Imitrex PRN (5) Hx-TIA (transient ischemic attack): Remote history, not on aspirin or statin (6) CKD (chronic kidney disease), stage III: Baseline Cr ~1. Repeat BMP tomorrow DVT Ppx: SCDs Code status: FULL PCP: Mauricio Dispo: Currently admitted to med/surg. Discharge per primary service. Patient seen in collaboration with Dr. Martínez. Please see addendum. I spent a total of 40 minutes coordinating, documenting, and providing care for this patient excluding time spent in the performance of separately billed services. Supervising Physician Co-Signing Physician Notes 58 yo F w/ PMH fo HLD, PAXTON, GERD, migraine, gastric bypass, depression was seen at bedside as medical management s/p lumbar spine sx. POD 0. Pt reports no febrile illness recently. ROS is neg. Pt hemodynamically stable and eating her lunch. reports operative site pain under control. On exam: GENERAL: Alert and oriented x3. NAD, on RA. HEENT: No pallor, no icterus. Pupils equal, round and reactive to light. Oral mucosa moist. NECK: No JVD, no neck masses. HEART: S1 and S2 heard. Regular rate and rhythm. No murmur, no gallop. RESPIRATORY SYSTEM: Normal AP diameter. No accessory muscle use. No wheezing, no crackles. ABDOMEN: Soft, bowel sounds present, nontender, no distention. CENTRAL NERVOUS SYSTEM: No facial droop. Speech is clear. Obeys simple commands. Moves extremities. EXTREMITIES: No edema, no erythema seen. SATHISH drain w/ serosanguineous collection noted. I have seen and examined the patient and have discussed the case with the provider above. I agree with the assessment and plan as stated. History of Present Illness Reason for Consultation: post op med mgmt Attending Physician: Yovany Varela DO History of Present Illness This is a 58yo F with a PMH of migraines, CKD III, mood disorder and other medical problems listed below who is POD #0 s/p lumbar decompression bilateral medial facetectomies and foraminotomies L3-L4 L4-5 and posterior spinal fusion L4-[address] Varela. Patient is feeling okay postoperatively. States she has some tenderness at surgical site and some right hip pain, which was present prior to surgery. Denies any new pain or paresthesias of bilateral lower extremity. Eating lunch without issue. Denies any recent illness, no fever, chills, lightness, headache, chest pain, shortness of breath, nausea, vomit, abdominal pain, dysuria, diarrhea or constipation. Follows with Dr. Martínez for primary care. Allergies Allergy/AdvReac Type Severity Reaction Status Date / Time meloxicam Allergy Rash Verified 10/19/23 07:52 Home Medications Medication Instructions Recorded Confirmed Type fluoxetine 20 mg tablet 20 mg PO QAM 09/28/23 10/19/23 History fremanezumab-vfrm 225 mg/1.5 mL 225 mg subcut Q30D 09/28/23 10/19/23 History subcutaneous auto-injector (Ajovy) magnesium 500 mg tablet 500 mg PO QAM 09/28/23 10/19/23 History jzkurvnb-mmk-olzdk ac 400 1 tab PO QAM 09/28/23 10/19/23 History mcg-calcium carb 500 mg-vit K1 20 mcg tablet (Women's 50 Plus Daily Formula) riboflavin (vitamin B2) 100 mg 400 mg PO QAM 09/28/23 10/19/23 History tablet (Vitamin B-2) rizatriptan 10 mg tablet (Maxalt) 10 mg PO UD PRN migraines 09/28/23 10/19/23 History sumatriptan succinate 6 mg/0.5 mL 6 mg subcut UD PRN migraines 09/28/23 10/19/23 History subcutaneous pen injector topiramate 100 mg tablet 200 mg PO BID 09/28/23 10/19/23 History oxycodone 5 mg tablet 5 mg PO Q6H PRN pain #30 tabs 10/19/23 Rx tramadol 50 mg tablet 50 mg PO Q6H PRN pain, moderate 10/19/23 Rx #30 tabs Patient History Medical History CKD (chronic kidney disease), stage III Migraines F/u Dr. Landa, [facility] Neuro Stable with Ajovy Anxiety and depression Hx-TIA (transient ischemic attack) 2003 or 2005, double vision, N/V, vertigo>hospitalized for 2 weeks>no residual effects History of COVID-19 03/2023, not hosp; severe flu symptoms>resolved Surgical History Hx of tubal ligation Hx of total hysterectomy ovaries remain History of total left knee replacement 2022 Hx of colonoscopy Family History Other Cancer Hypertension Stroke Social History Smoking Status: Never smoker Second Hand Exposure: Yes (hx as child); Do You Dip or Chew Tobacco: No; Tobacco Cessation Education Requested by Patient: No Hx Alcohol Use: Yes (many years ago) Hx Substance Use: No Preferred Language: Pashto Communication Ability: Effective Raveler Required: No Beliefs That Will Affect Care: None Current Living Situation: Spouse Other Information That Helps Us Care for You: No Feels Safe at Home: Yes Safety Concerns: Feels Safe At This Time Assistive Devices: None Review of Systems Review of Systems: At least ten systems reviewed and negative except as noted in the HPI. Physical Exam Physical Exam: Please see Dr. Eason's addendum for physical exam. Results & Data Vital Signs (Past 12 Hours) Vital Signs Temp Pulse Pulse Pulse Resp BP BP 10/19/23 12:59 36.4 C L 61 16 121/72 10/19/23 12:30 36.5 C 61 16 121/73 10/19/23 11:40 59 L 10 L 116/64 10/19/23 11:30 36.3 C L 52 L 18 123/72 10/19/23 11:20 53 L 10 L 129/69 10/19/23 11:10 36.1 C L 63 8 L 125/69 10/19/23 07:54 36.6 C 64 20 129/77 Pulse Ox O2 Del Method O2 Flow Rate 10/19/23 12:59 97 Room Air 10/19/23 12:30 96 Room Air 10/19/23 11:40 98 Nasal Cannula 2 10/19/23 11:30 96 Room Air 10/19/23 11:20 100 Room Air 10/19/23 11:10 99 Room Air 10/19/23 07:54 100 Room Air Diagnostic Findings Lumbar Spine X-Ray 10/19/23 09:05 INTRAOPERATIVE RADIOGRAPHS CLINICAL HISTORY: L4-L5 spinal fusion. Fluoro time: 13 seconds. Ka,r: 6.20 mGy FINDINGS: 2 spot fluoroscopic views of the lumbar spine are presented. There has been discectomy at L4-L5 with laminectomy and posterior fusion at this level. Interpedicular screws are in place. The orthopedic hardware appears intact. IMPRESSION: Intraoperative images from lumbar spinal fusion surgery as above. Electronically signed by: Gaston Drummond M.D. 10/19/2023 10:59 AM
[2023-10-19] MEDS: oxyCODONE HCL IR 5 MG TAB (IMMEDIATE RELEASE) PO PRN (13:32)
--- NOTE | 2023-10-19 13:45 | Anesthesiology Progress Note ---
Date of Service October 19, 2023 Anesthesia Post Procedure Vital Signs Vital Signs: Temp Pulse Pulse Pulse Resp BP BP 10/19/23 12:59 36.4 C L 61 16 121/72 10/19/23 12:30 36.5 C 61 16 121/73 10/19/23 12:00 36.4 C L 57 L 16 125/66 10/19/23 11:40 59 L 10 L 116/64 10/19/23 11:30 36.3 C L 52 L 18 123/72 10/19/23 11:20 53 L 10 L 129/69 10/19/23 11:10 36.1 C L 63 8 L 125/69 10/19/23 07:54 36.6 C 64 20 129/77 Pulse Ox O2 Del Method O2 Flow Rate 10/19/23 12:59 97 Room Air 10/19/23 12:30 96 Room Air 10/19/23 12:00 97 Room Air 10/19/23 11:40 98 Nasal Cannula 2 10/19/23 11:30 96 Room Air 10/19/23 11:20 100 Room Air 10/19/23 11:10 99 Room Air 10/19/23 07:54 100 Room Air Pain Intensity Back: Pain Intensity: 7 Transfer of Care Handoff Completed per policy Notes Mental Status: alert / awake / arousable Patient Amnestic to Procedure: Yes Nausea / Vomiting: adequately controlled Pain: adequately controlled Airway Patency, RR, SpO2: stable & adequate BP & HR: stable & adequate Hydration State: stable & adequate Anesthetic Complications: no major complications apparent
[2023-10-19] MEDS: ceFAZolin 1000MG 1,000 MG/7.5 ML SYR IV SCH (16:11)
[2023-10-19] MEDS: HYDROmorphone INJ 0.5 MG/0.5 ML SYR IV PRN (19:34)
--- OUTSIDE RECORDS SUMMARY | 2023-10-19 20:07 | External Medical Summary | Summary of Care ---
Author Name Unknown Organization [facility] Address [address] [facility] [place] [address] Phone [phone] Care Team Providers Care Internal Communications Specialist Name Role Phone Mauricio Hernandez DO, David Vincent Primary Care Provid er Reason for Visit * Reason Comments Medication Refill Encounter Details Date Type Department Care Team (Late st Contact Info) Description 10/18/2023 Refill Neurology [facility] [address] [place] [address] Gamal Heath DO [address] [place] [address] Allergies Active Allergy Reactions Criticality Noted Date Comments Meloxicam Rash Low 04/16/2018 documented as of this encounter (statuses as of 10/19/2023) Medications Medication Sig Dispensed Refills Start Date [...] Active Ondansetron 8 MG Oral Tablet Disintegrating (Zofran)Indications: Intractable migraine with aura without status migrainosus Place [...] AT BEDTIME 360 Tablet 3 02/21/2023 Active FLUoxetine HCl 20 MG Oral Capsule (PROzac) TAKE ONE CAPSULE BY MOUTH EVERY DAY 90 Capsule 3 08/27/2023 5 Active Rizatriptan Benzoate 10 MG Oral Tablet (Maxalt) Take 1 tablet as needed for migraine. May repeat after 2 hours. Do not exceed 2 tablets in 24 Hours. 10 Tablet 1 09/20/2023 Active Vitamin D-3 5000 UNIT/ML Sublingual Liquid Place under the tongue. Active Ajovy 225 MG/1.5ML Subcutaneous Solution Auto-injector (Fremanezumab-vfrm) INJECT 1.5 ML (1 PEN) UNDER THE SKIN EVERY MONTH. 1.5 mL 3 10/19/2023 Active Ajovy 225 MG/1.5ML Subcutaneous Solution Auto-injector (Fremanezumab-vfrm) INJECT 1.5 ML (1 PEN) UNDER THE SKIN EVERY MONTH. 1.5 mL 3 06/21/2023 4 Discontinue d(Refill) documented as of this encounter (statuses as of 10/19/2023) Active Problems Problem Noted Date Diagnosed Date [...] as of this encounter (statuses as of 10/19/2023) Resolved Problems Problem Noted Date Diagnosed Date Resolved Date TIA (transient ischemic attack) 11/25/2002 04/16/2018 documented as of this encounter (statuses as of 10/19/2023) Immunizations Name Administration Dates Next Due COVID-19 mRNA, LNP-s, No Pre serve, 2-Dose Series (SpoonRocket) 02/23/2021,05/06/2020,04/17/2020 COVID-19, LNP-s, No Preserve , Kamran-sucrose, Ages 12+ (SpoonRocket) 09/22/2021 Covid-19, Mrna, Lnp-s, Pf, B ivalent, 30 Mcg, IM, 12 yrs and above (SpoonRocket) 01/25/2022 Seasonal Influenza Virus Vac cine, Unspecified [...] Date Smoking Tobacco: Never Smokeless Tobacco: Never Alcohol Use Standard Drinks/Week Comments Not Currently [...] money to get more. Never true 10/06/2022 Personal Safety Answer Date Recorded Do you feel unsafe or have concerns for your saf ety? No 10/26/2022 Do you have concerns for you r family's safety? (Household - for ages 0-17 years) Not on file 10/26/2022 Utilities Answer Date Recorded Do you have trouble paying y our heating, water, or electric bill? No 10/26/2022 Is your family able to pay t he heat, water, or electric bill? (Household - for ages 0-17 years) Not on file 10/26/2022 Does your family have access to good internet? (Household - for ages 0-17 years) Not on file 10/26/2022 Social Connections Answer Date Recorded How often do you feel lonely or isolated from those around you? (Adult - for ages 18 years and over) Not on file 10/16/2023 Transportation Needs Answer Date Record ed READ ONLY Do you have troubl e getting a ride to medical visits or work? Never True 10/26/2022 Does your family have a hard time getting a ride to doctors visits? (Household - for ages 0-17 years) Not on file 10/26/2022 Has lack of transportation k ept you from medical appointments, meetings, work, or from getting things needed for daily living? Check all that apply. (Adult - for ages 18 years and over) Not on file 10/26/2022 Do you (or your family) have trouble finding or paying for a ride (transportation)? (Household - for ages 0-17 years) Not on file 10/26/2022 Housing Stability Answer Date Recorded Do you currently live in a s helter or have no steady place to sleep at night? (Adult - for ages 18 years and over) Not on file 10/26/2022 READ ONLY Do you think you a re at risk of becoming homeless? No 10/26/2022 Does your family worry about paying for your home or becoming homeless? (Household - for ages 0-17 years) Not on file 0 10/26/2022 Are you homeless or worried that you might be in the future? (Adult - for ages 18 years and over) Not on file Are you (or your family) zeyad eless or worried that you might be in the future? (Household - for ages 0-17 years) Not on file Food Insecurity Answer Date Recorded Do you need food for this week? No 10/26/2022 Are you able to get enough f ood for your family? (Household - for ages 0-17 years) Not on file 10/26/2022 Does your family need food t his week? (Household - for ages 0-17 years) Not on file 10/26/2022 Do you always have enough fo od for your family? (Household - for ages 0-17 years) Not on file 10/26/2022 Sex and Gender Information Value Date Recorded Sex Assigned at Female 04/18/2019 8:03 AM EST Gender Identity Female 04/18/2019 8:03 AM EST Sexual Orientation Straight 04/18/2019 8: 03 AM EST Job Start Date Occupation Industry Not on file Not on file Not on file documented as of this encounter Functional Status Functional Status Response [...] No 10/26/2022 documented as of this encounter Miscellaneous Notes * Telephone Encounter - Gamal Heath DO - 10/19/2023 8:36 AM EDT Signed Prescriptions: Disp Refills Ajovy 225 MG/1.5ML Subcutaneous Solution A*1.5 mL 3 Sig: INJECT 1.5 ML (1 PEN) UNDER THE SKIN EVERY MONTH.Authorizing Provider: GAMAL HEATH documented in this encounter Plan of Treatment Upcoming Encounters Date Type Department Care Team (Latest Contact Info) Description 03/17/2024 10:00 AM [facility] Hospital Encounter ENDO [facility], Endoscopy [address] [place] [id number] Celsa Santos DO [address] [place] [id number] 03/17/2024 10:00 AM EST - 03/17/2024 10:30 AM EST Surgery ENDO [facility] Endoscopy [address] [phone] Celsa Santos DO [address] [place] [address] COLONOSCOPY FLEXIBLE PROXIMAL DIAGNOSTIC 08/25/2024 8:40 AM EDT Office Visit Neurology [facility] [address] [facility] [place] [address] Chelly Hall MD [address] [place] [address] Scheduled Procedures Name Priority Associated Diagnoses Date/Ti [...] Depression Monitoring 10/07/2023 10/06/2022 GFR 02/14/2024 08/15/2023, 08/04/2022, 10/27/2022, Additional history exists Albumin/Creatinine Ratio 08/14/2024 08/15/2023 CKD HGB USE SMARTSET 55528 08/14/202408/14, 10/27/2022, 10/02/2022, Additional history exists CKD PHOS USE SMARTSET 16746 08/14/2024 08/15/2023 Mammogram 09/04/2024 09/05/2023, 08/12/2021, 08/25/2020, Additional history exists Lipid Panel 08/18/2026 [...] this encounter Medical Devices Implanted Type Area Skip Operator Device Identifier Shelf Expiration Date Model / Serial / Lot Cement Bone Simplex Hv & G - [id number] Implanted:Qty: 2 on 10/26/2022 by Lawson Pedraza MD at OR [facility] Left: Knee DIANA : ORTHOPAEDICS 12/29/2023 [id number] / / [id number] Knee Baseplate Tri Tib Sz 2 - [id number] Implanted:Qty: 1 on 10/26/2022 by Lawson Pedraza MD at OR [facility] Left: Knee DIANA : ORTHOPAEDICS 07/13/2027 [id number] / / [id number] Component Femoral Size 3 - [id number] Implanted:Qty: 1 on 10/26/2022 by Lawson Pedraza MD at OR [facility] Left: Knee DIANA : ORTHOPAEDICS 06/15/2027 [id number] / / [id number] Triathlon X3 Tibial Bearing Insert - Cs Implanted:Qty: 1 on 10/26/2022 by Lawson Pedraza MD at OR [facility] Left: Knee DIANA : ORTHOPAEDICS 06/24/2027 [id number]-G-[id number] / / [id number] documented as of this encounter Advance Directives * Full Code (Latest Code Status on File) Date Activated Date Inactivated Comments 10/26/2022 2:06 PM 10/27/2022 6:00 PM This order r eflects the patients wishes and were consensually agreed upon. Question Answer Comments Discussion of Advance Direct trinity occurred with: Not Discussed due to patient's condition Care Teams Internal Communications Specialist Relationship Specialty Start Date End Date Diego Martínez Jr., DO [address] [facility] [place], [place] [id number] PCP - General Family Medicine 05/01/17 documented as of this encounter
[2023-10-19] MEDS: TOPIRAMATE 100 MG TAB PO SCH (20:21)
[2023-10-19] MEDS: DOCUSATE SODIUM/SENNA 50/8.6MG TAB PO SCH (20:21)
[2023-10-20] MEDS: POLYETHYLENE (MIRALAX) 17 GM PACK PO SCH (05:32)
[2023-10-20 06:32] LABS: Basophils # (auto) 0.02 K/uL (0.00-0.20); Basophils % (auto) 0.3 %; Eosinophils # (auto) 0.08 K/uL (0.00-0.50); Eosinophils % (auto) 1.1 %; Hematocrit (blood only) 31.4 % (37.0-47.0); Hemoglobin 10.4 g/dl (12.0-16.0); Immature Granulocytes # (auto) 0.02 K/uL (0.01-0.20); Immature Granulocytes % (auto) 0.3 %; Lymphocytes # (auto) 1.74 K/uL (1.20-3.40); Lymphocytes % (auto) 24.2 %; Mean Corpuscular Hemoglobin 32.5 pg (25.0-34.0); Mean Corpuscular Hgb Conc 33.1 g/dL (32.0-36.0); Mean Corpuscular Volume 98.1 fL (80.0-100.0); Mean Platelet Volume 9.6 fL (9.4-12.4); Monocytes # (auto) 0.87 K/uL (0.11-0.59); Monocytes % (auto) 12.1 %; Neutrophils # (auto) 4.46 K/uL (1.40-6.50); Platelet Count 256 K/uL (130-400); RDW Coefficient of Variation 12.9 % (11.5-14.5); RDW Standard Deviation 46.1 fL (36.4-46.3); White Blood Count 7.19 K/ul (4.8-10.8)
[2023-10-20 06:45] LABS: BUN Creatinine Ratio 14.6 (10-20); Calcium 8.3 mg/dl (8.6-10.3); Est GFR (African American) 74.5 ml/min; Est GFR (Non-African American) 64.3 ml/min; Potassium 3.6 mmol/L (3.5-5.1)
--- NOTE | 2023-10-20 07:52 | Orthopedic Progress Note ---
Date of Service October 20, 2023 Assessment & Plan (1) Neurogenic claudication due to lumbar spinal stenosis: Plan: Leticia is postoperative day 1 status post TLIF L4-5. She is doing well. Will start physical therapy today. Ambulate ad tawanda. DVT prophylaxis is in the form of teds and SCDs. Continue with pain control. Work on aggressive bowel regimen. Anticipate discharge home within the next 24 to 48 hours Admission and Anticipated Discharge Date Admission Date: October 19, 2023 Subjective Leticia is postoperative day 1 status post decompression and fusion of L4-5. She had an uneventful evening. Still has some right leg pain. SATHISH drain output last shift was 100 cc. H&H this morning are 10.4 and 31.4 respectively. Review of Systems Review of Systems: All systems reviewed & are unremarkable except as noted in HPI & below Physical Exam Physical Exam: She is laying in bed in no acute distress Alert and oriented x 3 lumbar dressing is clean dry intact with functioning SATHISH drain strength intact bilateral lower extremities Results & Data Vital Signs (Past 12 Hours) Vital Signs Temp Pulse Resp BP Pulse Ox O2 Del Method 10/20/23 07:20 36.8 C 80 16 106/68 97 Room Air 10/20/23 03:39 36.8 C 88 16 105/65 97 Room Air 10/19/23 23:00 36.7 C 78 16 102/58 L 98 Room Air
[2023-10-20] MEDS: FLUoxetine HCL 20 MG CAP PO SCH (08:26)
[2023-10-20] MEDS: dexAMETHasone 6 MG in SYRINGE 0 ML IV SCH (08:27)
[2023-10-20] MEDS: MAGNESIUM OXIDE 400 MG TAB PO SCH (08:27)
[2023-10-20] MEDS ORDERED: NON-FORMULARY MEDICATION (Riboflavin (Vitamin B2) [Vitamin B-2] 100 mg Tablet) PO SCH (09:00)
[2023-10-20] MEDS: ACETAMINOPHEN 500 MG TAB PO PRN (09:03)
--- NOTE | 2023-10-20 12:34 | Hospitalist Progress Note ---
Date of Service October 20, 2023 Assessment & Plan (1) S/P spinal surgery: (2) Neurogenic claudication due to lumbar spinal stenosis: Plan: Ms. Garcia is a 58yo F with a PMH of dyslipidemia, PAXTON, GERD, history of gastric bypass, depression and other medical problems listed below who is s/p lumbar decompression bilateral medial facetectomies and foraminotomies L3-L4 L4- 5 and posterior spinal fusion L4-[address] Varela on 10/18 POD #1 s/p lumbar decompression bilateral medial facetectomies and foraminotomies L3-L4 L4-5 and posterior spinal fusion L4-[address] Varela Per ortho for pain control, wound care, anticoagulation and activities Monitor H&H (EBL 100ml, pre-op hgb 12.9), continue incentive spirometry, PT/OT when appropriate (3) Acute on chronic blood loss anemia: Plan: Monitor H&H (EBL 100ml, pre-op hgb 12.9) Down to hgb 10.4 Repeat cbc in am (4) Anxiety and depression: Plan: Stable. Continue fluoxetine (5) Migraines: Plan: Follows with Dr. Hall. Continue Topamax BID, monthly Ajovy injections,Maxalt and Imitrex PRN (6) Hx-TIA (transient ischemic attack): Plan: Remote history, not on aspirin or statin (7) CKD (chronic kidney disease), stage III: Plan: Baseline Cr ~1. stable DVT Ppx: SCDs Code status: FULL PCP: Mauricio Dispo: Currently admitted to med/surg. Discharge per primary service. Admission and Anticipated Discharge Date Admission Date: October 19, 2023 Subjective NAEO Reports some gas pain and need to pass stool, denies nausea/vomiting Reports pain in right leg still present, but lesser extent. Reports feeling sore but postoperative pain controlled Physical Exam Constitutional: WD/WN, vitals as above Respiratory: normal respiratory effort, lungs clear to auscultation Cardiovascular: RRR, no murmur, no edema Results & Data Results & Data Vital Signs (Past 12 Hours) Vital Signs Temp Pulse Resp BP Pulse Ox O2 Del Method 10/20/23 07:20 36.8 C 80 16 106/68 97 Room Air 10/20/23 03:39 36.8 C 88 16 105/65 97 Room Air Laboratory Results Short CBC 10/20/23 Range/Units 05:35 WBC 7.19 (4.8-10.8) K/ul Hgb 10.4 L (12.0-16.0) g/dl Hct 31.4 L (37.0-47.0) % Plt Count 256 (130-400) K/uL BMP 10/20/23 05:35 Sodium 138 Potassium 3.6 Chloride 108 H Carbon Dioxide 26 BUN 14 Creatinine 0.96 Glucose 97 Calcium 8.3 L Medications Administered Home Medications Medication Instructions Recorded Confirmed Last Taken fluoxetine 20 mg tablet 20 mg PO QAM 09/28/23 10/19/23 10/19/23 06:30 fremanezumab-vfrm 225 mg/1.5 mL 225 mg subcut Q30D 09/28/23 10/19/23 10/01/23 subcutaneous auto-injector (Ajovy) magnesium 500 mg tablet 500 mg PO QAM 09/28/23 10/19/23 10/18/23 07:00 meyfymha-ntd-pjyca ac 400 1 tab PO QAM 09/28/23 10/19/23 10/18/23 07:00 mcg-calcium carb 500 mg-vit K1 20 mcg tablet (Women's 50 Plus Daily Formula) riboflavin (vitamin B2) 100 mg 400 mg PO QAM 09/28/23 10/19/23 10/18/23 07:00 tablet (Vitamin B-2) rizatriptan 10 mg tablet (Maxalt) 10 mg PO UD PRN migraines 09/28/23 10/19/23 10/12/23 sumatriptan succinate 6 mg/0.5 mL 6 mg subcut UD PRN migraines 09/28/23 10/19/23 Unknown subcutaneous pen injector topiramate 100 mg tablet 200 mg PO BID 09/28/23 10/19/23 10/19/23 06:30 oxycodone 5 mg tablet 5 mg PO Q6H PRN pain #30 tabs 10/19/23 Unknown tramadol 50 mg tablet 50 mg PO Q6H PRN pain, moderate 10/19/23 Unknown #30 tabs Active Medications Generic Name Dose Route Start Last Admin Trade Name Freq PRN Reason Stop Dose Admin Acetaminophen 1,000 mg 10/19/23 12:55 10/20/23 09:03 Acetaminophen 500 Mg Tab PO 11/18/23 12:54 1,000 mg Q8H PRN Administration MILD Pain Scale 1,2,3 & Pre PT Fluoxetine HCl 20 mg 10/20/23 09:00 10/20/23 08:26 Fluoxetine Hcl 20 Mg Cap PO 11/19/23 08:59 20 mg QAM DEVYN Administration Hydromorphone HCl 0.5 mg 10/19/23 12:55 10/20/23 00:33 Hydromorphone Inj 0.5 Mg/0.5 Ml Syr IV 11/02/23 12:54 0.5 mg Q3H PRN Administration MODERATE Pain (Scale 4,5,6) & Pre PT Dexamethasone 6 mg/ Syringe 1.5 mls @ 1 mls/min 10/20/23 09:00 10/20/23 08:27 IV 10/22/23 09:02 1 mls/min DAILY DEVYN Administration Magnesium Oxide 400 mg 10/20/23 09:00 10/20/23 08:27 Magnesium Oxide 400 Mg Tab PO 11/19/23 08:59 400 mg QAM DEVYN Administration Oxycodone HCl 5 - 10 mg 10/19/23 12:55 10/20/23 05:32 Oxycodone Hcl Ir 5 Mg Tab (Immediate Release) PO 11/02/23 12:54 10 mg Q4H PRN Administration Pain & Pre PT Polyethylene Glycol 17 gm 10/20/23 06:00 10/20/23 11:32 Polyethylene (Miralax) 17 Gm Pack PO 11/19/23 05:59 17 gm Q6 DEVYN Administration Senna/Docusate Sodium 2 tab 10/19/23 21:00 10/19/23 20:21 Docusate Sodium/Senna 50/8.6mg Tab PO 11/18/23 20:59 2 tab HS DEVYN Administration Topiramate 200 mg 10/19/23 21:00 10/20/23 08:27 Topiramate 100 Mg Tab PO 11/18/23 20:59 200 mg BID DEVYN Administration
[2023-10-20] MEDS: traMADol HCL 50 MG TABLET PO PRN (20:29)
[2023-10-21 06:09] LABS: Hematocrit (blood only) 30.9 % (37.0-47.0); Hemoglobin 10.1 g/dl (12.0-16.0); Mean Corpuscular Hemoglobin 32.2 pg (25.0-34.0); Mean Corpuscular Hgb Conc 32.7 g/dL (32.0-36.0); Mean Corpuscular Volume 98.4 fL (80.0-100.0); Mean Platelet Volume 9.6 fL (9.4-12.4); Platelet Count 230 K/uL (130-400); RDW Coefficient of Variation 13.2 % (11.5-14.5); RDW Standard Deviation 47.8 fL (36.4-46.3); Red Blood Count 3.14 M/uL (4.20-5.40); White Blood Count 6.45 K/ul (4.8-10.8)
--- NOTE | 2023-10-21 07:58 | Discharge Summary ---
Date of Service October 21, 2023 Admission HPI Per Admitting Provider This is a 58-year-old female who presents with chronic persistent back and leg pain after the stents were open after Admission Exam (Per Admitting) Constitutional WD/WN, vitals as above Eyes normal visual anaya by confrontation ENMT external ear and nose normal, oropharynx normal Neck normal visual inspection Respiratory normal respiratory effort Cardiovascular Extremities: normal capillary refill Gastrointestinal (Abdomen) Inspection/Auscultation: abdomen normal to inspection Musculoskeletal Spine: + pain with thoraco-lumbar ROM Extremities: extremities normal to inspection and strength 5/5 throughout Skin no rashes, warm and dry Neurologic normal touch/pain/proprioception and moves all extremities Psychiatric A+Ox3, euthymic affect Eye Contact: good eye contact Discharge Data Consultations 10/19/23 12:55 Consult Hospitalist Routine Procedures Performed Operation Date: 10/19/23 09:05 Actual Procedures p L4-L5 Decompression and Fusion with Spinal Cord Monitoring(Not Applicable) - Yovany Varela DO Hospital Course (1) Neurogenic claudication due to lumbar spinal stenosis: Leticia is being discharged home on postoperative day 2 status post posterior lumbar decompression and fusion at L4-5. She still has some right leg pain but making progress in physical therapy daily. Pain is controlled overall. H&H this morning are 10.1 and 30.9 respectively. SATHISH drain output last shift was 40 cc. She is passing flatus but no bowel movement. Discharge Instructions ACTIVITY RECOMMENDATIONS: SELF CARE INSTRUCTIONS AFTER THORACIC/LUMBAR FUSIONS 1. You may walk to your tolerance. It is good exercise for your legs and back. Expect some back and intermittent leg aches and pains. 2. You may perform "counter-top" level activities (make a sandwich, sherley with a project, etc.). 3. No bending or lifting of more than 10 pounds or back twisting of any nature (roll like a log when turning in bed). 4. You may ride in a car for 20-30 minutes at a time. No driving until after your first visit with your doctor. 5. Frequent changes of position and restricting sitting to 30 minutes at a time will help limit the amount of back spasms and stiffness you may experience. 6. You may discontinue the use of ambulatory aids (cane, crutches, etc.) once your strength and confidence allow. 7. 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 Do not take a tub bath, sit in a hot tub or go into a swimming pool until after your first recheck in the office. SPECIAL CARE INSTRUCTIONS: VERY IMPORTANT TO READ AND REVIEW A. Your surgical incision has been closed with a cosmetic suture under the skin that will dissolve in about 6 weeks. In 14 days, you can use a pair of clean scissors and cut the suture that is left outside of the skin at the ends of your incision. 1. The small skin tapes can be removed 7 days after surgery if they have not fallen off by that point. 2. You may keep the wound open to air as much as possible to promote healing after post-op day number 5 unless told otherwise by your doctor. 3. If you think the wound looks like it is becoming infected (redness or worsening drainage) and/or you are experiencing fever, chill or worsening back pain and muscle spasms, contact the office so that we may evaluate you as soon as possible. B. Complications are uncommon, but please contact us if you have any signs or symptoms of: 1. wound infection (fever higher than 102.5 degrees F, redness, separation of wound, drainage, or increasing pain from the incision) 2. blood clots in legs (pain, swelling, redness and warmth in legs) 3. urinary tract infection (fever higher than 102.5 degrees F, burning upon urination or increased frequency of urination) 4. nerve problems (inability to walk on your toes or heels, numbness, loss of bowel or bladder control) 5. any other symptoms that concern you C. Please call the office at if you have any concerns or questions about your operation or recovery. D. No smoking! Smoking drastically decreases the chance of a solid fusion. E. Do not take any anti-inflammatory medications (Indocin, Advil, Motrin, Aspirin, Naprosyn, etc.) as these may inhibit the chance of a solid fusion. Tylenol is okay to take for pain. MANAGING PAIN AFTER SPINAL SURGERY 1. Narcotic medication is intended for short-term use and will be provided for surgical pain. Surgical pain usually lasts for a period of 4-6 weeks. Narcotic medication includes Percocet, Vicodin, Darvocet, Tylenol #3 or Lortab. 2. Longer-term pain is more appropriately treated with non-narcotic medication such as Tylenol ES. 3. Muscle spasm is not appropriately treated with narcotics. Muscle relaxers such as Soma, Flexeril or Skelaxin can be used along with Tylenol ES. 4. Remember that we all live with some "aches and pains". This is not unusual or uncommon after an injury or as we get older. a. Back pain is expected and may include muscle spasms for 4 to 6 weeks after surgery. The pain should gradually improve. If the pain worsens for no apparent reason, please contact the office. b. Intermittent leg pain may also be experienced and should not be concerned about unless it worsens for no apparent reason. If so, please contact the office. 5. We will provide appropriate medication within the normal guidelines of their prescribed use. We will also be very cautious and aware of potential abuse and extended duration of patients' medication needs. a. Pain medications are for your comfort and to assist with sleep and rest so that the tissue can heal. They are not provided in order to return to normal activity and should not be used through the day. To do so or worsening pain at night can result from ongoing tissue damage and development of tolerance to the prescribed medicine. 6. Please allow 2-3 days to process refills. Prescriptions will not be mailed but must be picked up at the office. FOLLOW UP VISIT: Keep your scheduled follow-up appointment. Any questions, please call the office at .
--- NOTE | 2023-10-21 10:22 | Hospitalist Progress Note ---
Date of Service October 21, 2023 Assessment & Plan (1) S/P spinal surgery: (2) Neurogenic claudication due to lumbar spinal stenosis: Plan: Ms. Garcia is a 58yo F with a PMH of dyslipidemia, PAXTON, GERD, history of gastric bypass, depression and other medical problems listed below who is s/p lumbar decompression bilateral medial facetectomies and foraminotomies L3-L4 L4- 5 and posterior spinal fusion L4-[address] Varela on 10/18 POD #2 s/p lumbar decompression bilateral medial facetectomies and foraminotomies L3-L4 L4-5 and posterior spinal fusion L4-[address] Varela Per ortho for pain control, wound care, anticoagulation and activities Hgb stable, continue incentive spirometry, PT/OT when appropriate (3) Acute on chronic blood loss anemia: Plan: Monitor H&H (EBL 100ml, pre-op hgb 12.9) Down to hgb 10.4, 10.1, stable (4) Anxiety and depression: Plan: Stable. Continue fluoxetine (5) Migraines: Plan: Follows with Dr. Hall. Continue Topamax BID, monthly Ajovy injections,Maxalt and Imitrex PRN (6) Hx-TIA (transient ischemic attack): Plan: Remote history, not on aspirin or statin (7) CKD (chronic kidney disease), stage III: Plan: Baseline Cr ~1. stable DVT Ppx: SCDs Code status: FULL PCP: Mauricio Dispo: Currently admitted to med/surg. Discharge per primary service. Admission and Anticipated Discharge Date Admission Date: October 19, 2023 Subjective NAEO Reports feeling sore mostly with getting up but denies any other acute events overnight Physical Exam Constitutional: WD/WN, vitals as above Respiratory: normal respiratory effort, lungs clear to auscultation Cardiovascular: RRR, no murmur, no edema Results & Data Results & Data Vital Signs (Past 12 Hours) Vital Signs Temp Pulse Resp BP Pulse Ox O2 Del Method 10/21/23 06:55 37 C 85 16 113/71 98 Room Air Laboratory Results Short CBC 10/21/23 Range/Units 05:17 WBC 6.45 (4.8-10.8) K/ul Hgb 10.1 L (12.0-16.0) g/dl Hct 30.9 L (37.0-47.0) % Plt Count 230 (130-400) K/uL Medications Administered Home Medications Medication Instructions Recorded Confirmed Last Taken fluoxetine 20 mg tablet 20 mg PO QAM 09/28/23 10/19/23 10/19/23 06:30 [id number] 225 mg/1.5 mL 225 mg subcut Q30D 09/28/23 10/19/23 10/01/23 subcutaneous auto-injector (Ajovy) magnesium 500 mg tablet 500 mg PO QAM 09/28/23 10/19/23 10/18/23 07:00 ukfajkxs-jwg-aauxo ac 400 1 tab PO QAM 09/28/23 10/19/23 10/18/23 07:00 mcg-calcium carb 500 mg-vit K1 20 mcg tablet (Women's 50 Plus Daily Formula) riboflavin (vitamin B2) 100 mg 400 mg PO QAM 09/28/23 10/19/23 10/18/23 07:00 tablet (Vitamin B-2) rizatriptan 10 mg tablet (Maxalt) 10 mg PO UD PRN migraines 09/28/23 10/19/23 10/12/23 sumatriptan succinate 6 mg/0.5 mL 6 mg subcut UD PRN migraines 09/28/23 10/19/23 Unknown subcutaneous pen injector topiramate 100 mg tablet 200 mg PO BID 09/28/23 10/19/23 10/19/23 06:30 oxycodone 5 mg tablet 5 mg PO Q6H PRN pain #30 tabs 10/19/23 Unknown tramadol 50 mg tablet 50 mg PO Q6H PRN pain, moderate 10/19/23 Unknown #30 tabs Active Medications Generic Name Dose Route Start Last Admin Trade Name Freq PRN Reason Stop Dose Admin Acetaminophen 1,000 mg 10/19/23 12:55 10/21/23 08:17 Acetaminophen 500 Mg Tab PO 11/18/23 12:54 1,000 mg Q8H PRN Administration MILD Pain Scale 1,2,3 & Pre PT Fluoxetine HCl 20 mg 10/20/23 09:00 10/21/23 08:16 Fluoxetine Hcl 20 Mg Cap PO 11/19/23 08:59 20 mg QAM DEVYN Administration Hydromorphone HCl 0.5 mg 10/19/23 12:55 10/20/23 00:33 Hydromorphone Inj 0.5 Mg/0.5 Ml Syr IV 11/02/23 12:54 0.5 mg Q3H PRN Administration MODERATE Pain (Scale 4,5,6) & Pre PT Dexamethasone 6 mg/ Syringe 1.5 mls @ 1 mls/min 10/20/23 09:00 10/21/23 08:15 IV 10/22/23 09:02 1 mls/min DAILY DEVYN Administration Magnesium Oxide 400 mg 10/20/23 09:00 10/21/23 08:16 Magnesium Oxide 400 Mg Tab PO 11/19/23 08:59 400 mg QAM DEVYN Administration Oxycodone HCl 5 - 10 mg 10/19/23 12:55 10/20/23 05:32 Oxycodone Hcl Ir 5 Mg Tab (Immediate Release) PO 11/02/23 12:54 10 mg Q4H PRN Administration Pain & Pre PT Polyethylene Glycol 17 gm 10/20/23 06:00 10/21/23 05:21 Polyethylene (Miralax) 17 Gm Pack PO 11/19/23 05:59 17 gm Q6 DEVYN Administration Senna/Docusate Sodium 2 tab 10/19/23 21:00 10/20/23 20:29 Docusate Sodium/Senna 50/8.6mg Tab PO 11/18/23 20:59 2 tab HS DEVYN Administration Topiramate 200 mg 10/19/23 21:00 10/21/23 08:15 Topiramate 100 Mg Tab PO 11/18/23 20:59 200 mg BID DEVYN Administration Tramadol HCl 50 - 100 mg 10/19/23 12:55 10/21/23 05:23 Tramadol Hcl 50 Mg Tablet PO 11/18/23 12:54 100 mg Q4H PRN Administration Moderate-Severe pain & Pre PT
== END 2023-10-21 12:13 | disposition home or self-care (01) | DRG 454 ==
LOC: ASU 07:22 → 3E 10:44